=== PATIENT | male | born 1990 | race Caucasian/White ===

== ENCOUNTER 2018-04-30 17:53 | Emergency (ER) | payer SELFPAY ==
[2018-04-30] MEDS ORDERED: SODIUM CHLORIDE 0.9% 50ML 50 ML ONE (18:07)
[2018-04-30] MEDS ORDERED: PROMETHAZINE HCL INJ 25 MG/ML VIAL ONE (18:07)
[2018-04-30] MEDS ORDERED: diazePAM INJ 10 MG/2 ML SYG IV ONE (18:20)
[2018-04-30] MEDS ORDERED: SODIUM CHLORIDE 0.9% 1000ML 1,000 ML IVS ONE (18:21)
[2018-04-30] MEDS ORDERED: PROMETHAZINE HCL INJ 25 MG in SODIUM CHLORIDE 0.9% 50ML 50 ML IVPB ONE (18:23)
[2018-04-30] MEDS ORDERED: POTASSIUM CHLORIDE ELIXIR 20 MEQ/15 ML UD PO ONE (18:58)
[2018-04-30] MEDS ORDERED: SPIRONOLACTONE 25 MG TAB PO ONE (18:58)
[2018-04-30] MEDS ORDERED: HYDROcodone 10MG/APAP 325MG 1 EA TAB PO ONE (20:06)
[2018-04-30] MEDS ORDERED: cloNIDine HCL 0.1 MG TAB PO ONE (20:06)
--- NOTE | 2018-04-30 20:50 | CT ---
EXAM DESCRIPTION: Head CLINICAL HISTORY: severe persistent headache COMPARISON: None Available. TECHNIQUE: Multiple helical axial tomographic images were obtained of the head without intravenous contrast. Coronal and sagittal reformatted images were obtained. This exam was performed according to our departmental dose-optimization program, which includes automated exposure control, adjustment of the mA and/or kV according to patient size and/or use of iterative reconstruction technique. FINDINGS: There is no acute intracranial hemorrhage. No mass. No midline shift. No ventriculomegaly. Langley-white matter differentiation is maintained. Paranasal sinuses are clear. Mastoid air cells and middle ear spaces are clear. Orbits and orbital contents are unremarkable. Osseous structures are unremarkable. Surrounding soft tissues are unremarkable. IMPRESSION: No acute intracranial process. Electronically signed by: Douglas Saunders MD 04/30/2018 8:49 PM MAINTENANCE ASSOCIATE
[2018-04-30 20:57] VITALS: O2SAT 97
[2018-04-30] MEDS ORDERED: SCOPOLAMINE PATCH 1.5MG 1 EA TD ONE (20:57)
[2018-04-30] MEDS ORDERED: predniSONE 20 MG TAB PO ONE (20:58)
--- NOTE | 2018-04-30 21:07 | ED.PDOC ---
History of Present Illness - General Chief Complaint: Headache Stated Complaint: headache Time Seen by Provider: 04/30/18 17:55 Source: patient Exam Limitations: no limitations - History of Present Illness Initial Comments: the patient is a 28-year-old male presenting to the emergency room with a severe headache that has been present for the last 4-5 days. He was seen at [facility] 2 days ago and had a head CT as well as a lumbar puncture and blood work at that time that were reassuring. He was given pain medications and blood pressure medications as his blood pressure was elevated. He was unable to get the medications filled immediately and the headache has persisted along with further episodes of nausea and vomiting. His headache seems to get worse when he is up exerting himself. Also headache seems to get worse with Valsalva, coughing and vomiting. There are no focal neurological deficits. There is no point tenderness. He does have moderate discomfort palpation over the paraspinal muscles of his upper cervical spine. There is also some tenderness over the scalp muscles. No rash. No vision changes. No eye pain. No altered mental status. No fever. No sore throat or runny nose. No hearing changes. Timing/Duration: other - 4-5 days Severity: severe Improving Factors: medication, rest Worsening Factors: movement Associated Symptoms: headaches, malaise, nausea/vomiting Allergies/Adverse Reactions: Allergies NO KNOWN ALLERGY Allergy (Verified 04/30/18 18:06) Home Medications: Ambulatory Orders Cyclobenzaprine HCl [Flexeril] 10 mg PO TID PRN #20 tab 04/30/18 HYDROcodone 5MG/APAP 325MG [[facility] 5/325] 1 tab PO PRN 04/30/18 Promethazine HCl 25 mg PO Q6H PRN #10 tab 04/30/18 Tramadol HCl 50 mg PO Q8HR PRN #60 tab 04/30/18 Review of Systems - Review of Systems Constitutional: States: malaise EENTM: States: no symptoms reported Respiratory: States: no symptoms reported Cardiology: States: no symptoms reported Gastrointestinal/Abdominal: States: nausea, vomiting Genitourinary: States: no symptoms reported Musculoskeletal: States: neck pain Skin: States: no symptoms reported Neurological: States: headache Endocrine: States: no symptoms reported All other Systems: No Change from Baseline Past Medical History (General) - Patient Medical History Hx Congestive Heart Failure: No Hx Diabetes: No - Vaccination History Hx Influenza Vaccination: No - Social History Hx Tobacco Use: Yes Family Medical History - Family History Father Family History: Unknown Living Status: Unknown Physical Exam - Physical Exam General Appearance: Obvious distress, Ill Appearing Eye Exam: bilateral normal Ears, Nose, Throat: hearing grossly normal, normal ENT inspection, normal pharynx Neck: full range of motion - no lymphadenopathy, other - see history of present illness Respiratory: lungs clear, normal breath sounds, no respiratory distress, no accessory muscle use Cardiovascular/Chest: normal peripheral pulses, regular rate, rhythm, no edema Peripheral Pulses: radial,right: 2+, radial,left: 2+, dorsalis pedis,right: 2+, dorsalis pedis,left: 2+ Gastrointestinal/Abdominal: non tender, soft Rectal Exam: deferred Back Exam: normal inspection, no CVA tenderness, no vertebral tenderness Extremity: normal range of motion, non-tender, normal inspection, no pedal edema , normal capillary refill 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, no motor/sensory deficits, alert, normal mood/affect - appropriate, oriented x 3 Skin Exam: normal color Comments: Vital Signs - 24 hr 04/30/18 04/30/18 04/30/18 18:02 19:00 19:15 Temperature 97.4 F L 98.3 F Pulse Rate [ 78 72 62 Left Brachial] Respiratory 22 18 Rate Blood Pressure 196/106 168/89 [Left Arm] O2 Sat by Pulse 99 97 Oximetry 04/30/18 04/30/18 20:54 20:56 Temperature 98.7 F Pulse Rate [ 60 Left Brachial] Respiratory 16 16 Rate Blood Pressure 133/82 122/67 [Left Arm] O2 Sat by Pulse 96 97 Oximetry Progress - Progress Progress: 04/30/18 21:09 the patient is a 28-year-old male presented to emergency room with a persistent severe headache. Laboratory work and CT scan are reassuring. The most likely diagnosis here is exertional headache. He is to try and avoid physical exertion for the next 4 or 5 days. He needs to keep himself well hydrated. He will be written for Phenergan for nausea, tramadol for pain and Flexeril as a muscle relaxer. Topical heat over the neck may also help. If symptoms persist or worsen rather than improving over the next week or 2 then consideration could be given towards a MRI/MRA to help rule out any smaller vascular malformations or smaller structural malformations, though these are unlikely. Of note he did have a moderately elevated white blood cell count here today as well as a couple of days ago. This does need to be rechecked in a week or so to make sure that it is normalizing. This is most likely a stress response. No evidence of any infection has been found. His lumbar puncture from [facility] showed no evidence of any infection, or hemorrhage. Additionally he was markedly hypertensive upon arrival, however with control of the pain and nausea and vomiting his blood pressures did completely normalize. This needs to be followed at home over the next week or so. He needs to follow- up with his primary care doctor in 1-2 weeks otherwise. he does need to take a laxative daily such as MiraLAX while he is taking any pain medication to prevent constipation which can worsen the headache. ER warnings were given. - Results/Orders Results/Orders: Laboratory Tests 04/30/18 04/30/18 18:00 18:00 WBC 18.2 H RBC 5.52 Hgb 17.2 Hct 50.7 MCV 91.9 MCH 31.2 H MCHC 33.9 RDW 13.3 Plt Count 352 MPV 8.7 Absolute Neuts (auto) 12.10 H Absolute Lymphs (auto) 4.60 H Absolute Monos (auto) 1.30 H Absolute Eos (auto) 0.20 Absolute Basos (auto) 0.10 Neutrophils % 66.2 Lymphocytes % 25.3 Monocytes % 7.0 Eosinophils % 1.0 Basophils % 0.5 Sodium 138 Potassium 3.2 L Chloride 98 L Carbon Dioxide 23 Anion Gap 20.2 H BUN 18 Creatinine 1.12 BUN/Creatinine Ratio 16.1 Random Glucose 133 H Serum Osmolality 279.5 Calcium 9.9 Magnesium 1.8 Total Bilirubin 0.7 AST 50 H ALT 89 H Alkaline Phosphatase 84 B-Natriuretic Peptide 118.0 H Serum Total Protein 8.2 Albumin 5.1 Globulin 3.1 Albumin/Globulin Ratio 1.[address] scan of the head shows no significant abnormality. No hydrocephalus. No mass. Departure - Departure Clinical Impression: Exertional headache, Headache associated with sexual activity Disposition: Discharge to Home or Self Care Condition: Fair Departure Forms: ED Discharge - Pt. Copy, Patient Portal Self Enrollment Diet: regular diet Activity: other Prescriptions: Tramadol HCl 50 mg PO Q8HR PRN #60 tab PRN Reason: Headache/Migraine Pain Cyclobenzaprine HCl [Flexeril] 10 mg PO TID PRN #20 tab PRN Reason: Muscle Spasms Promethazine HCl 25 mg PO Q6H PRN #10 tab PRN Reason: Vomiting Home Medications: Ambulatory Orders Cyclobenzaprine HCl [Flexeril] 10 mg PO TID PRN #20 tab 04/30/18 HYDROcodone 5MG/APAP 325MG [[facility] 5/325] 1 tab PO PRN 04/30/18 Promethazine HCl 25 mg PO Q6H PRN #10 tab 04/30/18 Tramadol HCl 50 mg PO Q8HR PRN #60 tab 04/30/18 Additional Instructions: the patient is a 28-year-old male presented to emergency room with a persistent severe headache. Laboratory work and CT scan are reassuring. The most likely diagnosis here is exertional headache. He is to try and avoid physical exertion for the next 4 or 5 days. He needs to keep himself well hydrated. He will be written for Phenergan for nausea, tramadol for pain and Flexeril as a muscle relaxer. Topical heat over the neck may also help. If symptoms persist or worsen rather than improving over the next week or 2 then consideration could be given towards a MRI/MRA to help rule out any smaller vascular malformations or smaller structural malformations, though these are unlikely. Of note he did have a moderately elevated white blood cell count here today as well as a couple of days ago. This does need to be rechecked in a week or so to make sure that it is normalizing. This is most likely a stress response. No evidence of any infection has been found. His lumbar puncture from [facility] showed no evidence of any infection, or hemorrhage. Additionally he was markedly hypertensive upon arrival, however with control of the pain and nausea and vomiting his blood pressures did completely normalize. This needs to be followed at home over the next week or so. He needs to follow- up with his primary care doctor in 1-2 weeks otherwise. he does need to take a laxative daily such as MiraLAX while he is taking any pain medication to prevent constipation which can worsen the headache. ER warnings were given.
[2018-04-30 21:43] VITALS: BP 116/65; TEMP 98
== END 2018-04-30 21:43 | disposition home or self-care (01) ==
LOC: ER 17:53
DX: G44.82 Headache associated with sexual activity (principal); Z87.891 Personal history of nicotine dependence
CPT/HCPCS: 70450; 80053; 83735; 83880; 84443; 85025; A4216; J2060; J2550; J7030; J7512